=== PATIENT | male | born 1955 | race Caucasian/White ===

== ENCOUNTER 2019-02-20 07:41 | Day surgery (SDC) | payer BC, MEDICARE ==
[~2019-02-20 07:41] MED LIST: Lactated Ringers 1,000 ML IV SCH; Sodium Chloride 0.9% 10 ML Syringe FLUSH PRN
[2019-02-20] MEDS ORDERED: Propofol 200 MG/20 ML SDV ONE ×2 (09:15→10:26)
[2019-02-20] MEDS ORDERED: fentaNYL 100 MCG/2 ML SDV ONE (09:15)
[2019-02-20 11:35] VITALS: BP 123/74
--- NOTE | 2019-02-20 13:26 | OR ---
DATE OF SURGERY: 02/20/2019. REFERRING PROVIDER: Yasmin Franco PA-C PRE-OPERATIVE DIAGNOSES: 1. History of colon polyps. Last colonoscopy was 02/2014. He did have some diverticulosis at that time as well. 2. Positive family history of colon cancer in mother who was diagnosed in her mid 60s. 3. History of coronary artery disease, status post stents in 04/2016. The patient has been off Plavix for a week and off aspirin since this past weekend. In the future, okay to have him continue his aspirin throughout the procedure, but hold Plavix. POST-OPERATIVE DIAGNOSES: 1. Three small polyps, all removed using cold forceps. a. A 2 mm polyp x2 in the cecum. b. A 2 mm polyp at 100 cm. 2. [id number] scattered diverticulosis. 3. Mild internal hemorrhoids, not acutely inflamed. PROCEDURE: Colonoscopy with polypectomy x3 using cold forceps. SURGEON: Maverick Downey M.D. ANESTHESIA: Monitored anesthesia care. BOWEL PREP: Good. Pop is a 64-year-old male who was brought to the endoscopy suite after discussing risks and benefits of the procedure. Informed consent was obtained for conscious sedation and colonoscopy with or without biopsy and/or polypectomy. We also discussed possibility of missed lesions. Pre-procedure exam was unremarkable. IV, oxygen, and monitors were placed. The patient was placed in the left lateral decubitus position. Sedation was administered and a digital rectal exam was performed which was unremarkable. Colonoscope was passed into the rectum and slowly advanced all the way to the cecum. Cecum was viewed and photographed. There was a 2 mm polyp x2 noted in the cecum, both of which were removed using cold forceps. The colonoscope was slowly withdrawn and the mucosa was closed observed in a direct circumferential manner. The ascending colon was remarkable for 2 mm polyp at 100 cm removed with cold forceps. There was also some mild diverticulosis on the right colon as well as in the descending and sigmoid colon areas. The transverse colon was otherwise unremarkable. The descending colon was otherwise unremarkable. The sigmoid colon was otherwise unremarkable. Retroflexion was performed and rectal mucosa revealed some mild internal hemorrhoids, not acutely inflamed. Scope was removed. The patient tolerated the procedure well. The patient was monitored until that baseline status. Discharge instructions were reviewed and the patient was discharged in good condition. COMPLICATIONS: None. TOTAL TIME: 19 minutes. ESTIMATED BLOOD LOSS: Less than 1 mL. RECOMMENDATIONS/FOLLOW-UP: We will await results of path report to determine ideal followup interval. The patient can resume his aspirin tomorrow and probably hold his Plavix for 3 days to limit any chance of bleeding. I would like to kindly thank Yasmin Franco for this referral. DMB: 02/20/2019 11:08:05 MODL: 02/20/2019 12:52:35 /[id number]
== END 2019-02-20 12:00 | disposition home or self-care (01) ==
LOC: VM.SDS 07:41
PROVIDERS: ATTEND Family Medicine
DX: Z12.11 Encounter for screening for malignant neoplasm of colon (principal); D12.0 Benign neoplasm of cecum; D12.2 Benign neoplasm of ascending colon; K64.8 Other hemorrhoids; K57.30 Diverticulosis of large intestine without perforation or abscess without bleeding; I10 Essential (primary) hypertension; E66.01 Morbid (severe) obesity due to excess calories; Z68.42 Body mass index [BMI] 45.0-49.9, adult; E78.5 Hyperlipidemia, unspecified; M10.9 Gout, unspecified; I25.10 Atherosclerotic heart disease of native coronary artery without angina pectoris; Z79.02 Long term (current) use of antithrombotics/antiplatelets; Z79.82 Long term (current) use of aspirin; Z80.0 Family history of malignant neoplasm of digestive organs; Z95.5 Presence of coronary angioplasty implant and graft; Z88.8 Allergy status to other drugs, medicaments and biological substances; Z88.2 Allergy status to sulfonamides; Z91.048 Other nonmedicinal substance allergy status; Z79.899 Other long term (current) drug therapy
CPT/HCPCS: 45380; J2704; J3010; J7120